=== PATIENT | female | born 1980 | race Caucasian/White ===

== ENCOUNTER 2016-07-24 17:19 | Inpatient (IN) | payer OTHER ==
--- NOTE | ~2016-07-24 | PN ---
Unit #: [id number] #: [id number] Patient: ROXANN PEREZ [id number] [facility] [address] [place] [address] [id number] MR#: [id number] NAME: ROXANN PEREZ. ROOM: P258 Age: 36 Sex: F Admission Date: 07/25/2016 : 1980 Attending Physician: Breezy Cook M.D. Admitting Physician: Breezy Cook M.D. Primary Care Physician: Generic Doctor Not In System [facility] PROGRESS NOTES DATE 07/27/2016 DISCUSSION Ms. Roman is a 36-year-old female, seen on 07/27/2016. The patient interviewed, chart reviewed, and obtained information from the nursing staff. The patient compliant and cooperative. Mood sad and dysphoric, flat affect, and guarded. The patient reports that she is still feeling sad, depressed, and having problem with the anxiety, trouble sleeping, passive SI. REVIEW OF SYSTEMS Complete review of systems unremarkable. MENTAL STATUS EXAMINATION General appearance: Patient dressed casually. Attention span and concentration, fair. Oriented to place and person. Mood and affect, sad and depressed. Speech, monotone. Thought process, concrete, having above mentioned symptoms, sad, depressed, anxious, passive SI. Recent and remote memory, poor. Insight and judgment, poor. DIAGNOSIS Major depressive disorder, recurrent, severe. ASSESSMENT/PLAN Advised to continue with the current medication with the plan to add Neurontin 300 mg three times a day, if needed consider further adjustment of medication. Dictated by... Jodie Almaguer/martha TD: 07/28/2016 11:49 JOB #: [id number] Unit #: [id number] #: [id number] Patient: ROXANN PEREZ [facility] PROGRESS NOTES Page 1 of 1 X Breezy Cook MD PROGRESS NOTE
--- NOTE | ~2016-07-24 | PN ---
Unit #: [id number] #: [id number] Patient: JESSIE CARBONE [id number] [facility] [address] [place] [address] [id number] MR#: [id number] NAME: JESSIE CARBONE. ROOM: P258 Age: 36 Sex: F Admission Date: 07/25/2016 : 1980 Attending Physician: Breezy Cook M.D. Admitting Physician: Breezy Cook M.D. Primary Care Physician: Generic Doctor Not In System [facility] PROGRESS NOTES DATE 07/28/2016 DISCUSSION Ms. Jessie Carbone is a 36-year-old female. Patient interviewed. Chart reviewed. Obtained information from nursing staff. Patient continues to be isolative, guarded but denied any thoughts of harming self or others. Reports making progress. Patient tolerating medication fairly well. Complete review of system unremarkable. MENTAL STATUS EXAMINATION General appearance, patient dressed casually. Attention span, concentration fair. Oriented in place and person. Mood and affect labile. Speech monotone. Thought process concrete. Patient denied any thoughts of harming self or others but guarded. Recent and remote memory poor. Insight and judgement poor. DIAGNOSIS Major depressive disorder, recurrent. ASSESSMENT/PLAN Advised to continue with current medication and therapeutic protocol. If needed, consider further adjustment of medication. Dictated by... Jodie Almaguer/es TD: 07/29/2016 19:43 JOB #: [id number] Unit #: [id number] #: [id number] Patient: JESSIE CARBONE [facility] PROGRESS NOTES Page 1 of 1 X Breezy Cook MD X PROGRESS NOTE
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
--- NOTE | ~2016-07-24 | DS ---
Unit #: [id number] #: [id number] Patient: ROXANN PEREZ [id number] [facility] [address] [place] [address] [id number] MR#: [id number] NAME: ROXANN PEREZ. ROOM: [facility]8 Age: 36 Sex: F Admission Date: 07/25/2016 : 1980 Discharge Date: 07/29/2016 Attending Physician: Breezy Cook M.D. Primary Care Physician: Generic Doctor Not In System DISCHARGE SUMMARY REASON FOR ADMISSION Depression. DIAGNOSTIC STUDIES LABORATORY RESULTS: None. HOSPITAL COURSE The patient was admitted to inpatient unit on 07/25/2016 and discharged on 07/29/2016. The patient was treated on the inpatient unit with group therapy, individual therapy, and medication management. The patient was mostly seclusive and isolative, but compliant with medication. Subsequently, the patient was discharged with a plan to follow up in outpatient program. The patient denied any thoughts of harming self or others. DISCHARGE MEDICATIONS Celexa 20 mg daily for depression, Macrodantin 200 mg b.i.d. for UTI, Desyrel 100 mg daily for insomnia, Vistaril 50 mg t.i.d. for anxiety, and Neurontin 100 mg t.i.d. for anxiety. DISCHARGE DIAGNOSES PSYCHIATRIC: Major depressive disorder, recurrent, severe, F33.2. Secondary diagnosis: Deferred. Medical diagnoses: Obesity, urinary tract infection, gastroesophageal reflux disease. Stressors: Psychosocial stressors. DISCHARGE INSTRUCTIONS The patient is to follow up in outpatient clinic as per community mental health social worker. CONDITION ON DISCHARGE The patient was pleasant and cooperative. Denied any psychotic symptom or any suicidal ideation. PROGNOSIS Guarded. DIET AND ACTIVITY As tolerated. Unit #: [id number] #: [id number] Patient: ROXANN PEREZ Dictated by... Breezy Cook M.D. SZC/arun TD: 07/29/2016 23:55 JOB #: [id number] DISCHARGE SUMMARY Page 1 of 1 X Breezy Cook MD X DISCHARGE SUMMARY
--- NOTE | ~2016-07-24 | CO ---
Unit #: [id number] #: [id number] Patient: ROXANN PEREZ [id number] [place] [address] [id number] I MR#: [id number] NAME: ROXANN PEREZ. ROOM: [facility]8 Age: 36 Sex: F Admission Date: 07/25/2016 : 1980 Attending Physician: Breezy Cook M.D. Primary Care Physician: Generic Doctor Not In System Consultation Date: 07/25/2016 CONSULTATION REPORT ORDERING PROVIDER Dr. Breezy Cook. REASON FOR CONSULTATION UTI. SUBJECTIVE The patient reports that she has had difficulty urinating and dysuria for several days. She went to the hospital, where antibiotics were started but not completed. OBJECTIVE Her examination was unremarkable. DIAGNOSTIC STUDIES LABORATORY RESULTS: Urinalysis shows positive nitrites and trace leukocytes. ASSESSMENT Urinary tract infection. PLAN Plan is to get a culture and sensitivity and start the patient on 5 days of Macrobid. Dictated by... Daniela Fernando A.P.R.N. for Jodie Levin/arun TD: 07/26/2016 22:34 JOB #: [id number] Unit #: [id number] #: [id number] Patient: ROXANN PEREZ CONSULTATION REPORT Page 1 of 1 X DANIELA FERNANDO APRN CONSULTATION REPORT
--- NOTE | ~2016-07-24 | PN ---
Unit #: [id number] #: [id number] Patient: JESSIE CARBONE [id number] [facility] [address] [place] [address] [id number] I MR#: [id number] NAME: JESSIE CARBONE. ROOM: P254 Age: 36 Sex: F Admission Date: 07/25/2016 : 1980 Attending Physician: Breezy Cook M.D. Admitting Physician: Breezy Cook M.D. Primary Care Physician: Generic Doctor Not In System [facility] PROGRESS NOTES DATE 07/25/2016 DISCUSSION Ms. Jessie Carbone is a 36-year-old female, seen on 07/25/2016. The patient interviewed, chart reviewed, and obtained information from the nursing staff. The patient compliant and cooperative, sad and dysphoric, flat affect, reported feeling sad and depressed. REVIEW OF SYSTEMS Complete review of systems unremarkable. MENTAL STATUS EXAMINATION General appearance: Patient moderately obese, dressed casually, withdrawn, isolative. Attention span and concentration, fair. Oriented to place and person. Mood and affect, sad and depressed. Speech, monotone. Thought process, concrete. The patient denied any thoughts of harming self or others but having those thoughts, passive SI. Recent and remote memory, poor. Insight and judgment, poor. DIAGNOSIS Major depressive disorder, recurrent, severe. ASSESSMENT/PLAN Advised to start the patient on Celexa 20 mg daily for depression, Vistaril 25 mg three times a day for anxiety, and Desyrel p.r.n., if needed consider further adjustment of medication. Dictated by... Jodie Almaguer/martha TD: 07/27/2016 08:53 JOB #: [id number] Unit #: [id number] #: [id number] Patient: JESSIE CARBONE [facility] PROGRESS NOT[facility] Page 1 of 1 X Breezy Cook MD PROGRESS NOTE
--- NOTE | ~2016-07-24 | PN ---
Unit #: [id number] #: [id number] Patient: JESSIE CARBONE [id number] [facility] [address] [place] [address] [id number] MR#: [id number] NAME: JESSIE CARBONE. ROOM: [facility] Age: 36 Sex: F Admission Date: 07/25/2016 : 1980 Attending Physician: Breezy Cook M.D. Admitting Physician: Breezy Cook M.D. Primary Care Physician: Generic Doctor Not In System [facility] PROGRESS NOTES DATE OF SERVICE 07/26/2016 DISCUSSION Ms. Jessie Carbone is a 36-year-old female seen on 07/26/2016. The patient interviewed, chart reviewed. Obtained information from nursing staff. The patient compliant, cooperative. Mood sad, depressed, withdrawn. The patient reported that she is still feeling depressed. Having passive SI. Vital Signs: 97.5, 76, 18, 123/75. Complete Review of Systems: Unremarkable. MENTAL STATUS EXAMINATION General Appearance: The patient dressed casually. Attention span, concentration: Fair. Oriented in time, place, and person. Mood and affect: Sad, depressed. Speech: Monotone. Thought process: [place]. The patient reported having passive SI, withdrawn, isolative. Recent and remote memory: Poor. Insight and judgment: Poor. DIAGNOSIS Major depressive disorder, recurrent, severe. ASSESSMENT/PLAN Advised to continue with current medications Desyrel, Celexa, Vistaril. If needed, consider further adjustment of medication. Dictated by... Jodie Almaguer/mitzy TD: 07/28/2016 08:07 JOB #: [id number] Unit #: [id number] #: [id number] Patient: JESSIE CARBONE [facility] PROGRESS NOT[facility] Page 1 of 1 X Breezy Cook MD X PROGRESS NOTE
--- NOTE | ~2016-07-24 | HP ---
Unit #: [id number] #: [id number] Patient: ROXANN PEREZ [id number] [place] [address] [id number] I MR#: [id number] NAME: ROXANN PEREZ. ROOM: [facility]4 Age: 36 Sex: F Admission Date: 07/25/2016 : 1980 Attending Physician: Breezy Cook M.D. Admitting Physician: Breezy Cook M.D. Primary Care Physician: Generic Doctor Not In System HISTORY AND PHYSICAL HISTORY OF PRESENT ILLNESS The patient is a 36-year-old female admitted to [address] [place] [address] on 07/25/2016 for suicidal ideations. PAST MEDICAL HISTORY 1. Obesity 2. UTI PAST SURGICAL HISTORY 1. . 2. Hernia times five. 3. Cholecystectomy. 4. Tonsillectomy. SOCIAL HISTORY The patient is unemployed. She denies alcohol, tobacco and drug use. FAMILY MEDICAL HISTORY Noncontributory. ALLERGIES No known drug allergies. CURRENT MEDICATIONS The patient is not on any home medication. REVIEW OF SYSTEMS CONSTITUTIONAL: No fever or chills. HEENT: Denies any sore throat, ear pain or runny nose. CARDIOVASCULAR: Denies chest pain, irregular heart rhythm or palpitations. CHEST: Denies shortness of breath or cough. No hemoptysis. GASTROINTESTINAL: Denies nausea, vomiting, diarrhea or chronic constipation. ENDOCRINE: Denies history of increased thirst or urination. No recent significant weight loss or gain. GENITOURINARY: Denies dysuria, frequency, or hematuria. SKIN: Denies any rashes. HEMATOLOGIC: Denies history of increased bleeding or bruising. MUSCULOSKELETAL: Denies any hot, swollen joints. No generalized muscle pain. NEUROLOGIC: Denies problems with vision or speech. No frequent, severe headaches. No numbness, tingling or weakness in any extremities. Denies loss of bladder or bowel control. Unit #: [id number] #: [id number] Patient: ROXANN PEREZ PHYSICAL EXAM GENERAL: She is awake, alert and oriented in no acute distress. VITAL SIGNS: Temperature 97.8, heart rate 82, respiration 16, blood pressure 128/82. HEIGHT: 5'4". WEIGHT: 260 pounds. SKIN: Warm and dry without rash or lesion. HEENT: Normocephalic. TMs not viewed. Oral and nasal passages clear. Conjunctivae clear. PERRLA. EOMs intact. NECK: Supple without lymphadenopathy or thyromegaly. HEART: Regular rate and rhythm without murmur. LUNGS: Clear. ABDOMEN: Soft, nontender. : Not done. EXTREMITIES: No evidence of cyanosis, clubbing or edema. Moves all without focal deficit. NEUROLOGICAL: Grossly within normal limits. Cranial Nerves: II: Visual appiah are intact. III, IV AND : Extraocular movements are intact. Pupils are equal, round and reactive to light. V: Facial sensation is grossly normal. VII: Facial movements and expression are normal. VIII: Auditory acuity grossly intact. IX, X: Uvula is midline. Phonation is normal. XI: Patient shrugs shoulders and turns head normally. XII: Tongue protrudes in the midline. Sensory and Motor Function: Sensory and motor sensation is grossly normal. Motor: moves all extremities well. IMPRESSION 1. Psychiatric admission. 2. Obesity. 3. UTI. RECOMMENDATIONS Psychiatric per psychiatrist. MEDICAL: No contraindication to participate in facility activities. MEDICAL PROGNOSIS Good. MEDICAL CONDITION Stable. Dictated by... Leigh Aiken/carlos TD: 07/27/2016 03:42 JOB #: [id number] Unit #: [id number] #: [id number] Patient: ROXANN PEREZ HISTORY AND PHYSICAL Page 1 of 1 X SANTIAGO WEAVER APRN HISTORY AND PHYSICAL
== END 2016-07-29 16:30 | DRG 885 ==
LOC: P2L 07-25 02:22
DX: F33.2 Major depressive disorder, recurrent severe without psychotic features (principal); R45.851 Suicidal ideations; Z68.41 Body mass index [BMI] 40.0-44.9, adult; N39.0 Urinary tract infection, site not specified; K21.9 Gastro-esophageal reflux disease without esophagitis; E66.9 Obesity, unspecified; Z90.49 Acquired absence of other specified parts of digestive tract
CPT/HCPCS: 87086